=== PATIENT | female | born 1945 | race Caucasian/White ===

== ENCOUNTER 2023-07-13 07:52 | Emergency (ER) | payer MEDICARE, SELFPAY ==
[2023-07-13 08:00] LABS: Glucose, Whole Blood 175 mg/dL (60-115)
--- NOTE | 2023-07-13 08:04 | PC.NURSE ---
Patient arrived via [facility]. Per EMS family reports patient with hx of dementia and breathing problems was not feeling well this morning and family was trying to get her into the car to bring to hospital when she collapsed. Family started CPR until EMS took over. EMS reports arrival to home around 6:55am. Reports obtained ROSC after 4th epi for only 5-15 seconds. Givena total of 5 epi by EMS, calcium and bicarb. Upon arrival to ED patient with marley in place, 7 O ET tube, and left IJ. BS 175. One dose epi given at 7:55am, provider at bedside ultrasound obtained with no cardiac activity. No pulse detected. Provider called time of at 7:57am
--- NOTE | 2023-07-13 08:18 | PC.NURSE ---
Spoke with Melania at [facility] who declined case. Case # [id number]
--- NOTE | 2023-07-13 08:20 | ED.CPR ---
HPI - CPR General Chief Complaint: Cardiac Arrest/CPR Stated Complaint: CARDIAC ARREST Source: EMS Mode of arrival: EMS History of Present Illness HPI narrative: pt arrived in full cardiac CPR ongoing ,pt collapsed about 1 h ago she is been on PEA arrest for 1 h,multiple epi given orally intubated in the field with C02 detection. Pt has hx of dementia,anemia,heavy smoker complaint: other (collapsed at home) Onset (ago): hour(s) (1) Timing confirmed by: other (EMS) Place: home Bystander CPR performed: Yes AED applied by bystander/deputy program manager: Yes Shock advised: No Initial findings in the field: unresponsive ROSC in the field: No Associated injuries: No Review of Systems Review of Systems: Yes Unobtainable due to mental condition PMFSH Social History Social History Advance Directives: No Physical Exam Vital Signs: Vital Signs: 0 Const: Other: unresponsive orally intubated Nutritional Appearance: well nourished HEENT: Other: no trauma,orally intubated Neck: Neck: Yes trachea midline Resp: Auscultation: clear to auscultation bilaterally Cardio: Other: no cardiac activity GI: Other: soft Inspection: Yes normal to inspection Skin: General skin exam: rashes and/or lesions noted and no erythema Neuro: Other: unresponsive Course Reevaluation(s) Reevaluation #1: Family here significative other and stepson Time: 08:55 Medical Decision Making Medical Decision Making MDM Narrative: Patient arrived in full cardiac arrest, she had about an hour of visitation by the EMS crew, she was intubated orally in the field, we did another round of CPR in the emergency department, bedside ultrasound was performed no cardiac activitycardiac standstill present. Code called at 7:57 Am. ME declined the case Differential Diagnosis Differential Diagnoses: The differential diagnosis associated with the presentation includes PE/MA/Dissection Lab Data Labs: Lab Results 07/13/23 Range/Units 07:56 POC Glucose 175 H (60-115) mg/dL Independent Interpretation I performed an independent interpretation of an: Rhythm Strip Interpretation: agonal rythm Critical Care Time Critical Care Time Critical Care Time: Yes Total Critical Care Time: 30 Attestation: Speaking to ALS prehospital,taking care of the pt,speaking with family Discharge Plan Discharge Clinical Impression: Cardiac arrest, Sudden cardiac Patient Disposition: Interventions: Organ Donor Nursing Doc/Post Mortem care Last Done: 07/13/23 08:16 Discharge Date/Time: 07/13/23 11:09 Date/Time: 07/13/23 07:57
== END 2023-07-13 11:09 | disposition expired ==
PROVIDERS: Emergency Provider Emergency Medicine; PCP Nurse Practitioner
DX: I46.9 Cardiac arrest, cause unspecified (principal); F03.90 Unspecified dementia, unspecified severity, without behavioral disturbance, psychotic disturbance, mood disturbance, and anxiety; D64.9 Anemia, unspecified; F17.200 Nicotine dependence, unspecified, uncomplicated
CPT/HCPCS: 82947; 99282; 99285; J0171